=== PATIENT | female | born 1955 | race African-American/Black ===

== ENCOUNTER 2019-01-02 08:04 | Inpatient (IN) | payer MEDICAID ==
[~2019-01-02] VITALS: Ht 167.6 cm; Wt 90.7 kg
[~2019-01-02 08:04] MED LIST: HYDR-523 PO; LYR25 PO
[2019-01-02] MEDS ORDERED: ONDANSETRON HCL 4MG/2ML INJ IV STA (09:07)
[2019-01-02] MEDS ORDERED: SODIUM CHLORIDE 0.9% 1,000 ML IV ONE ×2 (09:07→13:25)
[2019-01-02] MEDS ORDERED: MORPHINE SULFATE 4 MG/ML CPJ (NOT FOR IM USE) IV STA (09:07)
[2019-01-02 09:25] LABS: BASOPHILS % 0.9 % (0.0-2.0); EOSINOPHILS % 0.7 % (0.0-5.0); HEMATOCRIT. 41.1 % (36.0-48.0); HEMOGLOBIN. 14.2 g/dL (12.0-16.0); LYMPHOCYTES % 25.1 % (20.0-50.0); MEAN CORPUSCULAR VOLUME 95.5 fL (81.0-99.0); MEAN PLATELET VOLUME 9.6 fl (7.4-10.4); MONOCYTES % 7.9 % (2.0-8.0); NEUTROPHILS % 65.4 % (40.0-76.0); PLATELET 179 x1000/uL (130-400)
[2019-01-02 09:32] LABS: CHLORIDE 98 mEq/L (98-107)
[2019-01-02 12:17] LABS: CLARITY URINE CLEAR (CLEAR); COLOR URINE YELLOW (YELLOW); KETONES URINE NEGATIVE (NEGATIVE); LEUKOCYTE ESTERASE URINE TRACE (NEGATIVE); NITRITE URINE NEGATIVE (NEGATIVE); OCCULT BLOOD URINE NEGATIVE (NEGATIVE); PH URINE 6.5 (4.5-8.0); PROTEIN URINE NEGATIVE (NEGATIVE)
[2019-01-02] MEDS ORDERED: IOHEXOL-300 100 ML BOTTLE ONE (15:34)
[2019-01-02] MEDS ORDERED: KETOROLAC 30MG/ML VIAL IV STA (15:57)
[2019-01-02] MEDS ORDERED: POTASSIUM CHLORIDE 20MEQ TABLET SR PO ONE (16:00)
[2019-01-02] MEDS ORDERED: CEFTRIAXONE 1 G PREMIX 50 ML IV ONE (16:15)
[2019-01-02] MEDS ORDERED: ACETAMINOPHEN 325MG TABLET PO PRN ×2 (17:00→23:00)
[2019-01-02 22:22] VITALS: BP 144/53
[2019-01-02] MEDS ORDERED: DIPHENHYDRAMINE 50MG/ML VIAL IV PRN (23:00)
[2019-01-02] MEDS ORDERED: ONDANSETRON HCL 4MG/2ML INJ IV PRN (23:00)
[2019-01-02] MEDS ORDERED: CEFTRIAXONE 1 G PREMIX 50 ML IV SCH (23:00)
[2019-01-03] VITALS (12 sets, daily range): BP systolic 71–159; BP diastolic 31–80
[2019-01-03] MEDS: MORPHINE SULFATE 2 MG/ML CPJ (NOT FOR IM USE) IV PRN ×4 (03:33→15:20)
[2019-01-03] MEDS ORDERED: QUET300T2 MT (09:37)
[2019-01-03] MEDS ORDERED: ASPI-1158 MT (09:37)
[2019-01-03] MEDS ORDERED: ATOR10TA69 MT (09:37)
[2019-01-03] MEDS ORDERED: MULT-1021 MT (09:37)
[2019-01-03] MEDS ORDERED: TRAZ-251 PO (09:37)
[2019-01-03] MEDS ORDERED: CHLO25TA2 MT (09:37)
[2019-01-03] MEDS ORDERED: AMLO10TA80 MT (09:37)
[2019-01-03] MEDS ORDERED: DIPHENHYDRAMINE 50MG/ML VIAL IV PRN (11:00)
[2019-01-03] MEDS ORDERED: ENOXAPARIN 40MG/0.4ML SYR SUBCUT SCH (11:00)
[2019-01-03] MEDS ORDERED: CLONIDINE 0.1MG TABLET PO PRN (12:00)
[2019-01-03 12:15] LABS: CLARITY URINE CLEAR (CLEAR); COLOR URINE DARK YELLOW (YELLOW); KETONES URINE NEGATIVE (NEGATIVE); LEUKOCYTE ESTERASE URINE TRACE (NEGATIVE); NITRITE URINE NEGATIVE (NEGATIVE); OCCULT BLOOD URINE NEGATIVE (NEGATIVE); PH URINE 5.5 (4.5-8.0); PROTEIN URINE NEGATIVE (NEGATIVE); SPECIFIC GRAVITY URINE 1.022 (1.005-1.030)
[2019-01-03] MEDS: AMLODIPINE 2.5MG TABLET PO SCH ×2 (12:30→20:41)
[2019-01-03 12:51] LABS: *AMPHETAMINES SCREEN URINE NEGATIVE (NEGATIVE); *BARBITURATES SCREEN URINE NEGATIVE (NEGATIVE); *BENZODIAZEPINES SCREEN URINE NEGATIVE (NEGATIVE); *COCAINE SCREEN URINE NEGATIVE (NEGATIVE)
[2019-01-03 12:52] LABS: CANNABINOID URINE SCREEN NEGATIVE (NEGATIVE); METHADONE URINE SCREEN NEGATIVE (NEGATIVE); OPIATES URINE SCREEN PRESUMTIVE POSITIVE (NEGATIVE); PHENCYCLIDINE URINE SCREEN NEGATIVE (NEGATIVE)
[2019-01-03] MEDS: CEFTRIAXONE 1 G PREMIX 50 ML IV SCH (16:49)
[2019-01-03 17:00] LABS: BASOPHILS % 0.2 % (0.0-2.0); HEMATOCRIT. 40.6 % (36.0-48.0); HEMOGLOBIN. 13.8 g/dL (12.0-16.0); LYMPHOCYTES % 31.5 % (20.0-50.0); MEAN CORPUSCULAR HEMOGLOBIN 32.8 pg (28.0-32.0); MEAN CORPUSCULAR VOLUME 96.7 fL (81.0-99.0); MEAN PLATELET VOLUME 10.2 fl (7.4-10.4); MONOCYTES % 9.1 % (2.0-8.0); NEUTROPHILS % 58.2 % (40.0-76.0); PLATELET 158 x1000/uL (130-400); RED CELL DISTRIBUTION WIDTH 13.2 % (11.6-14.6)
[2019-01-03 17:07] LABS: CHLORIDE 101 mEq/L (98-107)
[2019-01-03] MEDS: ATORVASTATIN CALCIUM 10MG TABLET PO SCH (20:40)
[2019-01-03] MEDS: QUETIAPINE FUMARATE 50MG TABLET PO SCH (20:43)
[2019-01-03] MEDS ORDERED: MEDICATION NOT ON FORMULARY EA (Quetiapine Fumarate (Seroquel) 1 TAB) MT SCH (21:00)
[2019-01-03] MEDS ORDERED: IOHEXOL-350 100 ML BOTTLE ONE (21:05)
[2019-01-04] VITALS: BP 140/62
[2019-01-04 02:00] VITALS: BP 154/66
[2019-01-04 04:00] VITALS: BP 144/56
[2019-01-04] MEDS: MORPHINE SULFATE 2 MG/ML CPJ (NOT FOR IM USE) IV PRN ×4 (04:15→23:03)
[2019-01-04 05:45] VITALS: BP 151/80
[2019-01-04 06:18] LABS: BASOPHILS % 0.1 % (0.0-2.0); EOSINOPHILS % 0.5 % (0.0-5.0); HEMATOCRIT. 39.2 % (36.0-48.0); HEMOGLOBIN. 13.5 g/dL (12.0-16.0); LYMPHOCYTES % 22.2 % (20.0-50.0); MEAN CORPUSCULAR HEMOGLOBIN 33.2 pg (28.0-32.0); MEAN CORPUSCULAR VOLUME 96.6 fL (81.0-99.0); MEAN PLATELET VOLUME 10.4 fl (7.4-10.4); MONOCYTES % 10.7 % (2.0-8.0); NEUTROPHILS % 66.5 % (40.0-76.0); PLATELET 172 x1000/uL (130-400); RED BLOOD CELL COUNT 4.06 mill/uL (4.2-5.4)
[2019-01-04 06:27] LABS: CHLORIDE 99 mEq/L (98-107)
[2019-01-04] MEDS: CHLORTHALIDONE 25MG TABLET PO SCH (08:23)
[2019-01-04] MEDS: AMLODIPINE 2.5MG TABLET PO SCH (08:24)
[2019-01-04] MEDS: ENOXAPARIN 30MG/0.3ML SYR SUBCUT SCH ×2 (08:24→20:09)
[2019-01-04] MEDS: ASPIRIN 81MG TABLET PO SCH (08:24)
[2019-01-04] MEDS ORDERED: MEDICATION NOT ON FORMULARY EA (Aspirin (Aspirin Ec) 1 TAB) MT SCH (09:00)
[2019-01-04] MEDS ORDERED: CHLORTHALIDONE MT SCH (09:00)
[2019-01-04] MEDS ORDERED: POTASSIUM CHLORIDE 20MEQ TABLET SR PO NR ×3 (10:30→21:00)
[2019-01-04] MEDS ORDERED: REGADENOSON 0.4 MG/5 ML IV NR (14:15)
[2019-01-04] MEDS: CEFTRIAXONE 1 G PREMIX 50 ML IV SCH (15:35)
[2019-01-04] MEDS ORDERED: LACTULOSE 20G/30ML UDC PO NR (16:15)
[2019-01-04] MEDS: LOSARTAN POTASSIUM 25 MG TABLET PO SCH ×2 (16:52→20:08)
[2019-01-04] MEDS: DOCUSATE SODIUM 250MG CAPSULE PO SCH (16:54)
[2019-01-04 20:00] VITALS: BP 63/30
[2019-01-04] MEDS: ATORVASTATIN CALCIUM 10MG TABLET PO SCH (20:08)
[2019-01-04] MEDS: PANTOPRAZOLE 40MG DR TABLET PO SCH (20:08)
[2019-01-04] MEDS: AMLODIPINE 5MG TABLET PO SCH (20:09)
[2019-01-04] MEDS: QUETIAPINE FUMARATE 50MG TABLET PO SCH (20:09)
[2019-01-04 22:00] VITALS: BP 141/76
[2019-01-05] VITALS (13 sets, daily range): BP systolic 56–146; BP diastolic 24–87
[2019-01-05 05:39] LABS: BASOPHILS % 0.1 % (0.0-2.0); EOSINOPHILS % 0.4 % (0.0-5.0); HEMATOCRIT. 39.3 % (36.0-48.0); HEMOGLOBIN. 13.9 g/dL (12.0-16.0); LYMPHOCYTES % 17.6 % (20.0-50.0); MEAN CORPUSCULAR HEMOGLOBIN 33.7 pg (28.0-32.0); MEAN CORPUSCULAR VOLUME 95.4 fL (81.0-99.0); MEAN PLATELET VOLUME 10.4 fl (7.4-10.4); NEUTROPHILS % 72.9 % (40.0-76.0); PLATELET 181 x1000/uL (130-400); RED BLOOD CELL COUNT 4.12 mill/uL (4.2-5.4); RED CELL DISTRIBUTION WIDTH 12.9 % (11.6-14.6)
[2019-01-05 06:30] LABS: CHLORIDE 97 mEq/L (98-107)
[2019-01-05] MEDS: MORPHINE SULFATE 2 MG/ML CPJ (NOT FOR IM USE) IV PRN ×3 (07:33→22:29)
[2019-01-05] MEDS ORDERED: REGADENOSON 0.4 MG/5 ML IV ONE (08:50)
[2019-01-05] MEDS: CHLORTHALIDONE 25MG TABLET PO SCH (10:07)
[2019-01-05] MEDS: LOSARTAN POTASSIUM 25 MG TABLET PO SCH ×2 (10:07→22:04)
[2019-01-05] MEDS: ASPIRIN 81MG TABLET PO SCH (10:07)
[2019-01-05] MEDS: DOCUSATE SODIUM 250MG CAPSULE PO SCH (10:07)
[2019-01-05] MEDS: AMLODIPINE 5MG TABLET PO SCH ×2 (10:07→22:04)
[2019-01-05] MEDS: ENOXAPARIN 30MG/0.3ML SYR SUBCUT SCH ×2 (10:08→22:06)
[2019-01-05] MEDS: PANTOPRAZOLE 40MG DR TABLET PO SCH ×2 (10:08→22:10)
[2019-01-05] MEDS ORDERED: POTASSIUM CHLORIDE 20MEQ TABLET SR PO NR (10:30)
[2019-01-05] MEDS: CEFTRIAXONE 1 G PREMIX 50 ML IV SCH (17:04)
[2019-01-05] MEDS: QUETIAPINE FUMARATE 50MG TABLET PO SCH (22:05)
[2019-01-05] MEDS: ATORVASTATIN CALCIUM 10MG TABLET PO SCH (22:10)
[2019-01-06] VITALS (9 sets, daily range): BP systolic 90–123; BP diastolic 54–74
[2019-01-06 05:57] LABS: CHLORIDE 96 mEq/L (98-107)
[2019-01-06] MEDS: PANTOPRAZOLE 40MG DR TABLET PO SCH (07:50)
[2019-01-06] MEDS: MORPHINE SULFATE 2 MG/ML CPJ (NOT FOR IM USE) IV PRN (07:51)
[2019-01-06] MEDS: CHLORTHALIDONE 25MG TABLET PO SCH (08:10)
[2019-01-06] MEDS: AMLODIPINE 5MG TABLET PO SCH (08:10)
[2019-01-06] MEDS: ENOXAPARIN 30MG/0.3ML SYR SUBCUT SCH (08:10)
[2019-01-06] MEDS: ASPIRIN 81MG TABLET PO SCH (08:11)
[2019-01-06] MEDS: DOCUSATE SODIUM 250MG CAPSULE PO SCH (08:11)
[2019-01-06] MEDS: LOSARTAN POTASSIUM 25 MG TABLET PO SCH (08:15)
== END 2019-01-06 11:40 | disposition home or self-care (01) | DRG 197 ==
LOC: ER 08:22 → 5EST 17:01 → ENRESERV 20:00
PROVIDERS: ADMIT Internal Medicine; ATTEND Internal Medicine
DX: I71.02 Dissection of abdominal aorta (principal); I51.3 Intracardiac thrombosis, not elsewhere classified; K76.0 Fatty (change of) liver, not elsewhere classified; I11.9 Hypertensive heart disease without heart failure; R07.89 Other chest pain; N12 Tubulo-interstitial nephritis, not specified as acute or chronic; I48.2 Chronic atrial fibrillation; B19.20 Unspecified viral hepatitis C without hepatic coma; E78.5 Hyperlipidemia, unspecified; E87.6 Hypokalemia; F31.9 Bipolar disorder, unspecified; K57.30 Diverticulosis of large intestine without perforation or abscess without bleeding; E11.9 Type 2 diabetes mellitus without complications; D25.9 Leiomyoma of uterus, unspecified; F17.210 Nicotine dependence, cigarettes, uncomplicated; E78.00 Pure hypercholesterolemia, unspecified; Z79.899 Other long term (current) drug therapy; Z79.82 Long term (current) use of aspirin; Z71.89 Other specified counseling; Z71.6 Tobacco abuse counseling
CPT/HCPCS: 36415; 71045; 74174; 74177; 76830; 76856; 78452; 80048; 80305; 83735; 83880; 84145; 84484; 85379; 93005; 93017; 93306; 93970; 99285; A9500; J0696; J1200; J1650; J1885; J2270; J2405; J2785; J7030; J7040; J7050; Q9967

== ENCOUNTER 2019-09-01 10:54 | Emergency (ER) | payer MEDICAID ==
[~2019-09-01] VITALS: Ht 167.6 cm; Wt 77.0 kg
[~2019-09-01 10:54] MED LIST changes: +AMLO10TA80 MT; +ASPI-1158 MT; +ATOR10TA69 MT; +CHLO25TA2 MT; +MULT-1021 MT; +QUET300T2 MT; +TRAZ-251 PO
[2019-09-01 13:16] VITALS: BP 184/74
[2019-09-01] MEDS ORDERED: HYDROCODONE/ACETAMINOPHEN 5/325MG TABLET PO ONE (14:00)
== END 2019-09-01 14:25 | disposition home or self-care (01) ==
LOC: ER 10:54
DX: M25.569 Pain in unspecified knee (principal); M19.90 Unspecified osteoarthritis, unspecified site; F31.9 Bipolar disorder, unspecified; E78.00 Pure hypercholesterolemia, unspecified; I10 Essential (primary) hypertension; Z79.82 Long term (current) use of aspirin
CPT/HCPCS: 99282

== ENCOUNTER 2021-02-03 17:30 | Emergency (ER) | payer MEDICARE, OTHER ==
[~2021-02-03] VITALS: Ht 167.6 cm; Wt 90.0 kg
[~2021-02-03 17:30] MED LIST changes: -ASPI-1158 MT; +ASPI-1406 MT
[2021-02-03] MEDS ORDERED: KETOROLAC 60MG/2ML VIAL IM ONE (18:45)
[2021-02-03 19:00] VITALS: BP 151/82
[2021-02-03] MEDS ORDERED: LIDOCAINE HCL 1% 20ML VIAL (Pyxis) INJ INFIL ONE (20:00)
[2021-02-03] MEDS ORDERED: T3 PO (21:54)
[2021-02-06] MEDS ORDERED: T3 PO (10:48)
== END 2021-02-03 22:44 | disposition home or self-care (01) ==
LOC: ER 18:02
DX: S52.591A Other fractures of lower end of right radius, initial encounter for closed fracture (principal); I49.9 Cardiac arrhythmia, unspecified; M19.90 Unspecified osteoarthritis, unspecified site; F31.9 Bipolar disorder, unspecified; E78.00 Pure hypercholesterolemia, unspecified; I10 Essential (primary) hypertension; W01.0XXA Fall on same level from slipping, tripping and stumbling without subsequent striking against object, initial encounter; Y93.51 Activity, roller skating (inline) and skateboarding; Y92.9 Unspecified place or not applicable; Z79.82 Long term (current) use of aspirin
CPT/HCPCS: 24650; 73110; 93005; 96372; 99284; J1885; J3490

== ENCOUNTER 2021-02-09 11:09 | Emergency (ER) | payer MEDICARE, MEDICAID ==
[~2021-02-09] VITALS: Ht 165.1 cm; Wt 77.0 kg
[~2021-02-09 11:09] MED LIST changes: +T3 PO
[2021-02-09] MEDS ORDERED: HYDROCODONE/ACETAMINOPHEN 5/325MG TABLET PO ONE (13:15)
[2021-02-09 13:40] VITALS: BP 134/77
== END 2021-02-09 13:40 | disposition home or self-care (01) ==
LOC: ER 11:09
DX: S52.501A Unspecified fracture of the lower end of right radius, initial encounter for closed fracture (principal); Z48.00 Encounter for change or removal of nonsurgical wound dressing; W18.30XA Fall on same level, unspecified, initial encounter; Y93.89 Activity, other specified; Y92.89 Other specified places as the place of occurrence of the external cause; Y99.8 Other external cause status
CPT/HCPCS: 99283